=== PATIENT | male | born 1990 | race Caucasian/White ===

== ENCOUNTER 2020-11-07 12:39 | Emergency (ER) | payer MEDICAID, SELFPAY ==
[~2020-11-07] VITALS: Ht 165.1 cm; Wt 83.5 kg
[2020-11-07 12:41] VITALS: BP 14/82; Ht 165.1 cm; Wt 83.5 kg
== END 2020-11-07 16:13 | disposition home or self-care (01) ==
LOC: ED 12:39
DX: U07.1 COVID-19 (principal); J45.909 Unspecified asthma, uncomplicated; E66.9 Obesity, unspecified; Z68.30 Body mass index [BMI] 30.0-30.9, adult
CPT/HCPCS: U0003